=== PATIENT | female | born 1970 | race Two or more races ===

== ENCOUNTER 2023-04-07 12:49 | Emergency (ER) | payer MEDICAID, OTHER ==
[~2023-04-07] VITALS: Ht 167.6 cm; Wt 76.4 kg
[2023-04-07 13:21] VITALS: BP 134/83; PULSE 78; RESP 16; O2SAT 94
[2023-04-07] MEDS ORDERED: AZIT500T66 PO (14:22)
[2023-04-07] MEDS ORDERED: ALBU108A5 IN (14:22)
[2023-04-07] MEDS ORDERED: PROM1SOL4 PO (14:22)
== END 2023-04-07 14:29 | disposition home or self-care (01) ==
LOC: ER 12:49
DX: J20.9 Acute bronchitis, unspecified (principal); R07.89 Other chest pain
CPT/HCPCS: 71046

== ENCOUNTER 2024-03-04 16:08 | Emergency (ER) | payer MEDICAID ==
[~2024-03-04] VITALS: Ht 167.6 cm; Wt 75.3 kg
[~2024-03-04 16:08] MED LIST: ALBU108A5 IN; AZIT500T66 PO; PROM1SOL4 PO
[2024-03-04 17:15] VITALS: BP 195/112; TEMP 98.1
[2024-03-04 17:16] VITALS: PULSE 82; RESP 18; O2SAT 96
== END 2024-03-04 17:25 | disposition home or self-care (01) ==
LOC: ER 16:08
DX: S16.1XXA Strain of muscle, fascia and tendon at neck level, initial encounter (principal); I10 Essential (primary) hypertension; Z79.899 Other long term (current) drug therapy; V89.2XXA Person injured in unspecified motor-vehicle accident, traffic, initial encounter; Y93.I9 Activity, other involving external motion; Y92.488 Other paved roadways as the place of occurrence of the external cause; Y99.8 Other external cause status